=== PATIENT | female | born 1980 | race Two or more races ===

== ENCOUNTER → 2017-07-11 | Outpatient (CLI) | payer MEDICAID ==
--- NOTE | 2017-07-11 09:52 | WOMENS IMAGING REPORT ---
EXAM DESCRIPTION: TRANSVAGINAL ULTRASOUND COMPLETED DATE/TIME: 07/11/2017 8:54 am REASON FOR STUDY: EXCESSIVE AND FREGUENT MENSTRUATION; N92.0 N92.0 EXCESSIVE AND FREQUENT MENSTRUAT ION WITH REGULAR CYCLE COMPARISON: None. TECHNIQUE: Dynamic and static grayscale images acquired of the pelvis via transvaginal approach and recorded on PACS. Additional selected color Doppler and spectral images recorded. LIMITATIONS: None. FINDINGS: UTERUS: Contour normal. No mass. Uterus is 9.5 x 6 x 4.6 cm in size. ENDOMETRIAL STRIPE: No focal or generalized thickening. No masses. 10 mm in thickness CERVIX: Small nabothian cysts. Small amount of fluid in the cervix. Cervix 3.6 cm in length. RIGHT OVARY: No abnormal masses. Right ovary 3.7 x 2 x 3 cm in size RIGHT OVARY DOPPLER: Normal arterial vascular flow without evidence for torsion. LEFT OVARY: Left ovary 4 x 3.5 x 2.5 cm in size with a 2.2 cm simple cyst. LEFT OVARY DOPPLER: Normal arterial vascular flow without evidence for torsion. FREE FLUID: None noted. OTHER: No other significant finding. IMPRESSION: Left ovary 2.2 cm simple cyst. Otherwise unremarkable endovaginal pelvic ultrasound. TECHNICAL DOCUMENTATION: JOB ID: [id number] [employer]- All Rights Reserved
== END ==
LOC: WI 16:27
PROVIDERS: ATTEND Family Medicine
DX: N92.0 Excessive and frequent menstruation with regular cycle (principal); N83.292 Other ovarian cyst, left side
CPT/HCPCS: 76830

== ENCOUNTER → 2017-07-14 | Outpatient (CLI) | payer MEDICAID ==
--- NOTE | 2017-07-14 16:53 | WOMENS IMAGING REPORT ---
EXAM DESCRIPTION: BILAT DIAGNOSTIC MAMMO W/CAD; U/S BREAST UNILATERAL, COMPL COMPLETED DATE/TIME: 07/14/2017 8:23 am; 07/14/2017 9:31 am REASON FOR STUDY: N63.20; LT BREAST N63.20 N63.20 UNSPECIFIED LUMP IN THE LEFT BREAST, UNSPECIFIED QUAD COMPARISON: No previous mammograms or ultrasound TECHNIQUE: Standard craniocaudal and mediolateral oblique views of each breast recorded using digita l acquisition. Additional left breast 90 mediolateral view was performed. Left breast ultrasound was also performed. LIMITATIONS: None. FINDINGS: RIGHT BREAST MASSES: No suspicious masses. CALCIFICATIONS: No suspicious calcifications. ARCHITECTURAL DISTORTION: None. DEVELOPING DENSITY: None. ASYMMETRY: None noted. OTHER: No other significant findings. LEFT BREAST MASSES: No suspicious masses. CALCIFICATIONS: No suspicious calcifications. ARCHITECTURAL DISTORTION: None. DEVELOPING DENSITY: None. ASYMMETRY: None noted. OTHER: No other significant finding. Read with the assistance of CAD: .[facility] - R2 Cenova Version 1.3 .[facility] - R2 Cenova Version 1.3 .[facility] - R2 Cenova Version 2.4 .[facility]2 Cenova Version 2.4 .[facility] - R2 Pail Bailer Version 9.2 Left breast ultrasound: Entire left breast ultrasound was performed. No discrete cystic or solid lesions. No worrisome acou stic absorption. No focal findings. IMPRESSION: No mammographic evidence for malignancy right breast. No mammographic or sonographic evidence for malignancy left breast. BREAST DENSITY: b. There are scattered areas of fibroglandular density. BIRAD: 1 Negative. RECOMMENDATION: RECOMMENDED FOLLOW UP: Please continue yearly bilateral screening mammography beginn ing at age 39 SPECIFIC INTERVENTION/IMAGING/CONSULTATION RECOMMENDED:No additional intervention/ imaging/consultati on needed at this time. COMMUNICATION:Patient notified by letter COMMENT: The patient has been notified of the results by letter per SA requirements. Additional no tification policies are in place for contacting patient with suspicious or incomplete findings. Quality ID #225: The [employer] recommends an annual screening mammogram for women aged 40 years or over. This facility utilizes a reminder system to ensure that all patients receive reminder letters, and/or direct phone calls for appointments. This includes reminders for routine scr eening mammograms, diagnostic mammograms, or other Breast Imaging Interventions when appropriate. Th is patient will be placed in the appropriate reminder system. The [employer] (ACR) has developed recommendations for screening MRI of the breast s in certain patient populations, to be used in conjunction with mammography. Breast MRI surveillanc e may be appropriate for women with more than 20% lifetime risk of developing breast cancer as deter mined by genetic testing, significant family history of the disease, or history of mantle radiation f or Hodgkins Disease. ACR Practice Guidelines 2008. TECHNICAL DOCUMENTATION: FINDING NUMBER: (1) ASSESSMENT: (1) JOB ID: [id number] [employer]- All Rights Reserved
--- NOTE | 2017-07-14 16:53 | WOMENS IMAGING REPORT ---
EXAM DESCRIPTION: BILAT DIAGNOSTIC MAMMO W/CAD; U/S BREAST UNILATERAL, COMPL COMPLETED DATE/TIME: 07/14/2017 8:23 am; 07/14/2017 9:31 am REASON FOR STUDY: N63.20; LT BREAST N63.20 N63.20 UNSPECIFIED LUMP IN THE LEFT BREAST, UNSPECIFIED QUAD COMPARISON: No previous mammograms or ultrasound TECHNIQUE: Standard craniocaudal and mediolateral oblique views of each breast recorded using digita l acquisition. Additional left breast 90 mediolateral view was performed. Left breast ultrasound was also performed. LIMITATIONS: None. FINDINGS: RIGHT BREAST MASSES: No suspicious masses. CALCIFICATIONS: No suspicious calcifications. ARCHITECTURAL DISTORTION: None. DEVELOPING DENSITY: None. ASYMMETRY: None noted. OTHER: No other significant findings. LEFT BREAST MASSES: No suspicious masses. CALCIFICATIONS: No suspicious calcifications. ARCHITECTURAL DISTORTION: None. DEVELOPING DENSITY: None. ASYMMETRY: None noted. OTHER: No other significant finding. Read with the assistance of CAD: .[facility] - R2 Cenova Version 1.3 .[facility] Imaging - R2 Cenova Version 1.3 .[facility] - R2 Cenova Version 2.4 .[facility] - R2 Cenova Version 2.4 .[facility] - R2 [employer] Version 9.2 Left breast ultrasound: Entire left breast ultrasound was performed. No discrete cystic or solid lesions. No worrisome acou stic absorption. No focal findings. IMPRESSION: No mammographic evidence for malignancy right breast. No mammographic or sonographic evidence for malignancy left breast. BREAST DENSITY: b. There are scattered areas of fibroglandular density. BIRAD: 1 Negative. RECOMMENDATION: RECOMMENDED FOLLOW UP: Please continue yearly bilateral screening mammography beginn ing at age 39 SPECIFIC INTERVENTION/IMAGING/CONSULTATION RECOMMENDED:No additional intervention/ imaging/consultati on needed at this time. COMMUNICATION:Patient notified by letter COMMENT: The patient has been notified of the results by letter per SA requirements. Additional no tification policies are in place for contacting patient with suspicious or incomplete findings. Quality ID #225: The [employer] recommends an annual screening mammogram for women aged 40 years or over. This facility utilizes a reminder system to ensure that all patients receive reminder letters, and/or direct phone calls for appointments. This includes reminders for routine scr eening mammograms, diagnostic mammograms, or other Breast Imaging Interventions when appropriate. Th is patient will be placed in the appropriate reminder system. The [employer] (ACR) has developed recommendations for screening MRI of the breast s in certain patient populations, to be used in conjunction with mammography. Breast MRI surveillanc e may be appropriate for women with more than 20% lifetime risk of developing breast cancer as deter mined by genetic testing, significant family history of the disease, or history of mantle radiation f or Hodgkins Disease. ACR Practice Guidelines 2008. TECHNICAL DOCUMENTATION: FINDING NUMBER: (1) ASSESSMENT: (1) JOB ID: [id number] [employer]- All Rights Reserved
== END ==
LOC: WI 07:43
PROVIDERS: ATTEND Family Medicine
DX: N63.20 Unspecified lump in the left breast, unspecified quadrant (principal)
CPT/HCPCS: 76641; G0204; 77066

== ENCOUNTER 2018-12-07 05:12 | Day surgery (SDC) | payer MEDICAID ==
--- NOTE | 2018-12-06 09:29 | EKG REPORT ---
SEVERITY:- NORMAL ECG - SINUS RHYTHM : Confirmed by: Marzena Simpson MD 06-Dec-2018 09:27:58
[2018-12-06 09:47] LABS: APPEARANCE,URINE CLEAR; BILIRUBIN,URINE NEGATIVE (NEGATIVE); COLOR,URINE YELLOW; GLUCOSE, URINE NEGATIVE (NEGATIVE); KETONES,URINE NEGATIVE (NEGATIVE); LEUKOCYTE ESTERASE,URINE SMALL (NEGATIVE); NITRITE,URINE NEGATIVE (NEGATIVE); PROTEIN,URINE NEGATIVE (NEGATIVE); URINE SPECIFIC GRAVITY 1.008; UROBILINOGEN,URINE NEGATIVE mg/dL (<2.0)
[2018-12-06 09:49] LABS: HEMATOCRIT 39.1 % (36.0-47.0); HEMOGLOBIN 13.6 g/dL (12.0-15.5); MEAN CORPUSCULAR HEMOGLOBIN 29.6 pg (27.0-33.4); MEAN CORPUSCULAR HGB CONC 34.8 g/dL (32.0-36.0); MEAN CORPUSCULAR VOLUME 85 fl (80-97); PLATELET COUNT 254 10^3/uL (150-450); RED BLOOD COUNT 4.59 10^6/uL (3.72-5.28); RED CELL DISTRIBUTION WIDTH 16.5 % (11.5-14.0); WHITE BLOOD COUNT 9.7 10^3/uL (4.0-10.5)
[2018-12-06 10:38] LABS: ALANINE AMINOTRANSFERASE 40 U/L (9-52); ALBUMIN 4.2 g/dL (3.5-5.0); ALKALINE PHOSPHATASE 61 U/L (38-126); ANION GAP 10 (5-19); ASPARTATE AMINO TRANSFERASE 28 U/L (14-36); BILIRUBIN,DIRECT 0.3 mg/dL (0.0-0.4); BILIRUBIN,TOTAL 0.5 mg/dL (0.2-1.3); BLOOD UREA NITROGEN 14 mg/dL (7-20); CALCIUM 10.2 mg/dL (8.4-10.2); CARBON DIOXIDE 28 mmol/L (22-30); CHLORIDE 103 mmol/L (98-107); GLUCOSE 97 mg/dL (75-110); POTASSIUM 4.4 mmol/L (3.6-5.0); SODIUM 141.1 mmol/L (137-145); TOTAL PROTEIN 6.9 g/dL (6.3-8.2)
--- NOTE | 2018-12-06 10:58 | RADIOLOGY REPORT (SQ) ---
EXAM DESCRIPTION: CHEST PA/LATERAL COMPLETED DATE/TIME: 12/06/2018 10:34 am REASON FOR STUDY: PRE-OP COMPARISON: None. EXAM PARAMETERS: NUMBER OF VIEWS: two views TECHNIQUE: Digital Frontal and Lateral radiographic views of the chest acquired. RADIATION DOSE: NA LIMITATIONS: none FINDINGS: LUNGS AND PLEURA: No opacities, masses or pneumothorax. No pleural effusion. MEDIASTINUM AND HILAR STRUCTURES: No masses or contour abnormalities. HEART AND VASCULAR STRUCTURES: Heart normal size. No evidence for failure. BONES: No acute findings. HARDWARE: None in the chest. OTHER: No other significant finding. IMPRESSION: NO SIGNIFICANT RADIOGRAPHIC FINDING IN THE CHEST. TECHNICAL DOCUMENTATION: JOB ID: [id number] [employer]- All Rights Reserved Reading location - IP/workstation name: [email or web address]
[~2018-12-07 05:12] MED LIST: CEFAZOLIN 1 GM/D5W RTU 1 GM/50 ML RTUPB IV PRN; LACTATED RINGERS 1000 ML IV PRN; LIDOCAINE 0.5% INJ-PF (5 MG/ML) 50 ML SDV SUBCUT PRN; MAGNESIUM CITRATE 296 ML BOTTLE PO ONE
[2018-12-07] MEDS ORDERED: CEFAZOLIN 1 GM/D5W RTU 1 GM/50 ML RTUPB IV ONE (05:40)
[2018-12-07] MEDS ORDERED: HYDROMORPHONE HCL INJ/PF 2 MG/ML AMPULE ONE (06:43)
[2018-12-07] MEDS ORDERED: ACETAMINOPHEN 1,000 MG/100 ML RTUPB IV ONE ×2 (06:43→15:00)
[2018-12-07] MEDS ORDERED: FENTANYL CITRATE INJ/PF 250 MCG/5 ML AMPULE ONE (06:43)
[2018-12-07] MEDS ORDERED: MIDAZOLAM 2 MG/2 ML INJ ONE (06:43)
[2018-12-07] MEDS ORDERED: PROPOFOL INJ 200 MG/20 ML VIAL IV ONE (06:44)
[2018-12-07] MEDS ORDERED: FENTANYL CITRATE INJ/PF 100 MCG/2 ML AMPUL IV PRN ×3 (08:06)
[2018-12-07] MEDS ORDERED: DIPHENHYDRAMINE HCL 50 MG/ML VIAL IV PRN (08:06)
[2018-12-07] MEDS ORDERED: PROMETHAZINE HCL INJ 25 MG/1 ML VIAL IV PRN (08:06)
[2018-12-07] MEDS ORDERED: MORPHINE SULFATE 10 MG/ML INJ IV PRN ×2 (08:06→12:05)
[2018-12-07] MEDS ORDERED: MEPERIDINE HCL/PF INJ 25 MG/1 ML DISP.SYRIN IV PRN (08:06)
[2018-12-07] MEDS ORDERED: NALOXONE HCL INJ/PF 0.4 MG/1 ML SDV ONE (09:40)
[2018-12-07] MEDS ORDERED: RINGERS SOLUTION,LACTATED 1,000 ML IV PRN (12:02)
[2018-12-07] MEDS: OXYCODONE-ACETAMINOPHEN 5-325 MG TABLET PO PRN (12:39)
[2018-12-07] MEDS: METRONIDAZOLE 500 MG/NS RTU 500 MG/100 ML RTUPB IV SCH ×2 (12:40→22:32)
[2018-12-07] MEDS ORDERED: VECURONIUM BROMIDE INJ 10 MG VIAL IV ONE (14:50)
[2018-12-07] MEDS ORDERED: NEOSTIGMINE METHYLSULFATE 10 MG/10 ML VIAL ONE (14:50)
[2018-12-07] MEDS ORDERED: ONDANSETRON HCL INJ/PF 4 MG/2 ML SDV ONE (14:50)
[2018-12-07] MEDS ORDERED: SUCCINYLCHOLINE CHLORIDE INJ 200 MG/10 ML VIAL ONE (14:50)
[2018-12-07] MEDS ORDERED: LIDOCAINE 2% INJ-PF (20 MG/ML) 2 ML AMPUL ONE (14:50)
[2018-12-07] MEDS ORDERED: GLYCOPYRROLATE 1 MG/5 ML SYRINGE ONE (14:50)
[2018-12-07] MEDS ORDERED: DEXAMETHASONE SOD PHOSPHATE INJ 4 MG/1 ML VIAL ONE (14:50)
--- NOTE | 2018-12-07 15:09 | OPERATIVE REPORT E ---
Operative Report NAME: ORVILLE LEONARDO : 1980 AGE: 38Y DATE OF SURGERY: 12/07/2018 ROOM: 209 PREOPERATIVE DIAGNOSIS: ABNORMAL UTERINE BLEEDING, CHRONIC PELVIC PAIN, AND UTERINE FIBROIDS. POSTOPERATIVE DIAGNOSIS: ABNORMAL UTERINE BLEEDING, CHRONIC PELVIC PAIN, AND UTERINE FIBROIDS. OPERATION: ROBOTIC ASSISTED TOTAL LAPAROSCOPIC HYSTERECTOMY WITH BILATERAL SALPINGECTOMY. SURGEON: CAROLA ALMAZAN M.D. FINISHER TAILOR APPRENTICE: Catalina Sanon ANESTHESIA: Dr. Jacobo, general. FINDINGS: 16 week uterus with multiple fibroids throughout. Ovaries were normal in appearance. Fallopian tubes were well adhered to the ovaries. COMPLICATIONS: None. ESTIMATED BLOOD LOSS: 100 mL. SPECIMENS REMOVED: Uterus, cervix, and bilateral fallopian tubes. PROCEDURE: The patient was taken to the operating room, prepared and draped in normal sterile fashion in the dorsal lithotomy position. Under sterile conditions, a Aggarwal catheter was placed to gravity. Sterile speculum was placed in the vagina. The cervix was prepped with Betadine and grasped on the anterior lip with a single-tooth tenaculum. The uterus was then sounded to approximately 16 cm. The cervix was then dilated to accommodate a medium VCare uterine manipulator, which was inserted without difficulty, and the speculum and tenaculum were removed at this point. Gloves were changed and attention was turned to the upper portion of the case, where a skin incision was made approximately 1.5 cm above the umbilicus, 2.5 cm long, to accommodate a Gelport, which was placed without difficulty. Abdomen was inflated with approximately 2 liters of CO2 gas through the air seal. A camera was introduced and the patient was placed in steep Trendelenburg with the above findings noted. Under direct visualization, two 5 mm ports were placed, approximately 10-11 cm on either side of the umbilicus, and the robot was docked with the monopolar scissors placed on the right and the vessel sealer placed on the left. Beginning with the left fallopian tube, this was transected using the monopolar scissors until it was removed. The uterovarian ligament was then transected using the vessel sealer, and we carried this through to the round ligament, which was also transected. The uterine artery was well skeletonized using the vessel sealer and monopolar scissors as needed for blunt dissection. The bladder flap was begun using the monopolar scissors. We then turned our attention to the right portion of the case, and the right fallopian tube was removed in a similar fashion. The right ovarian ligament was also transected using the vessel sealer. The uterine artery was skeletonized and transected and ligated using the vessel sealer, until we reached the level of the bladder flap, which was completed on this side, again using blunt dissection and the monopolar scissors. We continued transection of the uterine artery down to the level of the external cervix, which was guided by the VCare manipulator, which was noted through the vaginal mucosa. We then completed our uterine artery ligation on the left, and the colporrhaphy was begun on the posterior side using the monopolar scissors and going in a circumferential fashion following the VCare cup until the specimen was completely freed. The specimen was then removed through the vaginal defect without difficulty. Instruments were changed to the Merlin Needle Residential Sales Representative and the V-Loc needle was introduced by my rehab care assistant, and using the V-Loc, closed the vaginal cuff completely and placed a suture on each end with closure at the uterosacral ligaments for added vaginal cuff support. The suture was then cut and the needle was removed through the *------* port. The pedicles were inspected and found to be hemostatic. The ureters were inspected carefully and found to be peristalsing with no signs of hydroureter. The peritoneal cavity was copiously suction irrigated throughout the case, and there was no evidence of bleeding. The procedure was then completed. The robot was undocked. Instruments were removed. The fascia was closed at the umbilicus using 0 Vicryl. The skin was closed at all three sites using 4-0 Vicryl. The patient tolerated the procedure well. Sponge, lap, and needle counts were correct x2, and the patient was taken to recovery in stable condition. DICTATING PHYSICIAN: CAROLA ALMAZAN M.D. [id number] PHY#: [id number] ID: [id number] JOB#: [id number] ACCT: [id number] cc:CAROLA ALMAZAN M.D. >
[2018-12-07] MEDS: KETOROLAC TROMETHAMINE INJ/PF 30 MG/1 ML SDV IV SCH ×2 (15:19→22:32)
[2018-12-08] MEDS: OXYCODONE-ACETAMINOPHEN 5-325 MG TABLET PO PRN (04:29)
[2018-12-08] MEDS: KETOROLAC TROMETHAMINE INJ/PF 30 MG/1 ML SDV IV SCH (05:38)
[2018-12-08 05:54] LABS: HEMATOCRIT 36.6 % (36.0-47.0); HEMOGLOBIN 12.2 g/dL (12.0-15.5); MEAN CORPUSCULAR HEMOGLOBIN 28.8 pg (27.0-33.4); MEAN CORPUSCULAR HGB CONC 33.4 g/dL (32.0-36.0); MEAN CORPUSCULAR VOLUME 86 fl (80-97); PLATELET COUNT 231 10^3/uL (150-450); RED BLOOD COUNT 4.24 10^6/uL (3.72-5.28); RED CELL DISTRIBUTION WIDTH 16.3 % (11.5-14.0); WHITE BLOOD COUNT 13.2 10^3/uL (4.0-10.5)
[2018-12-08] MEDS ORDERED: IBUPROFEN 800 MG TABLET PO PRN (06:00)
[2018-12-08] MEDS: METRONIDAZOLE 500 MG/NS RTU 500 MG/100 ML RTUPB IV SCH (10:04)
--- NOTE | 2018-12-08 10:48 | PDOC DISCHARGE SUMMARY ---
General - Admit/Disc Date/PCP Admission Date/Primary Care Provider: KYA GUPTA MD Discharge Date: 12/08/18 - Discharge Diagnosis (1) Abnormal uterine and vaginal bleeding, unspecified Is this a current diagnosis for this admission?: Yes (2) Uterine fibroid Is this a current diagnosis for this admission?: Yes (3) s/p total hysterectomy and salpingectomy Is this a current diagnosis for this admission?: Yes - Additional Information Home Medications: Aripiprazole 20 mg PO DAILY 12/06/18 Buspirone HCl [Buspar 10 mg Tablet] 10 mg PO BID 12/06/18 Escitalopram Oxalate 20 mg PO DAILY 12/06/18 Gabapentin 600 mg PO TID 12/06/18 Hydrochlorothiazide [Hydrodiuril 25 mg Tablet] 25 mg PO QAM 12/06/18 Iron 27 mg PO DAILY 12/06/18 Levothyroxine Sodium [Synthroid 0.088 mg Tablet] 88 mcg PO DAILY 12/06/18 Lisinopril 20 mg PO DAILY 12/06/18 Metformin HCl 500 mg PO DAILY 12/06/18 Metoprolol Succinate [Toprol Xl] 50 mg PO BID 12/06/18 Multivitamin [Multivitamins] 1 each PO DAILY 12/06/18 Trazodone HCl 100 mg PO HSP PRN 12/06/18 History of Present Illness History of Present Illness: ORVILLE LEONARDO is a 38 year old female Hospital Course Hospital Course: underwent robotic hysterectomy with b/l salpingectomy without difficulty. unremarkable post op period. passing flatus and tolerating regular diet. Physical Exam - Physical Exam Vital Signs: Temp Pulse Resp BP Pulse Ox 98.2 F 76 15 134/80 H 99 12/08/18 07:48 12/08/18 07:48 12/08/18 07:48 12/08/18 07:48 12/08/18 07:48 Intake & Output 12/07/18 12/08/18 12/09/18 06:59 06:59 06:59 Intake Total 4000 1100 Output Total 1100 Balance 2900 1100 Weight 113.85 kg 116.3 kg General appearance: PRESENT: no acute distress, cooperative - incisions clean/dry and intact. minimal ecchymosis Result Laboratory Results: 12/08/18 04:38 12/06/18 09:03 12/08/18 04:38 WBC 13.2 H RBC 4.24 Hgb 12.2 Hct 36.6 MCV 86 MCH 28.8 MCHC 33.4 RDW 16.3 H Plt Count 231 Impressions: Chest X-Ray 12/06/18 10:24 IMPRESSION: NO SIGNIFICANT RADIOGRAPHIC FINDING IN THE CHEST. Plan Discharge Plan: follow up as scheduled with Dr. Craft Time Spent: Less than 30 Minutes Acute Heart Failure Is this a Heart Failure Patient?: No
[2018-12-08 12:08] VITALS: BP 123/83
== END 2018-12-08 12:20 | disposition home or self-care (01) ==
LOC: OROUT 05:12 → 2N 10:51 → OROUT 12-08 12:20
PROVIDERS: ATTEND Obstetrics & Gynecology
DX: N92.0 Excessive and frequent menstruation with regular cycle (principal); D25.2 Subserosal leiomyoma of uterus; N93.9 Abnormal uterine and vaginal bleeding, unspecified; N83.8 Other noninflammatory disorders of ovary, fallopian tube and broad ligament; G89.29 Other chronic pain; R10.2 Pelvic and perineal pain; D64.89 Other specified anemias; I10 Essential (primary) hypertension; E11.9 Type 2 diabetes mellitus without complications; E03.9 Hypothyroidism, unspecified; E66.9 Obesity, unspecified; Z68.42 Body mass index [BMI] 45.0-49.9, adult; Z79.899 Other long term (current) drug therapy; Z87.891 Personal history of nicotine dependence; Z01.818 Encounter for other preprocedural examination; Z79.84 Long term (current) use of oral hypoglycemic drugs
CPT/HCPCS: 58571; S2900; 36415; 71046; 80053; 81001; 81025; 85027; 86850; 86900; 86901; 88307; 93005; 93010; 944; J0131; J0330; J0690; J1100; J1170; J1885; J2250; J2310; J2405; J2704; J2710; J3010; J3490; J7120